=== PATIENT | male | born 1980 | race Caucasian/White ===

== ENCOUNTER 2023-02-28 16:47 | Emergency (ER) | payer OTHER, BC ==
[2023-02-28 17:02] LABS: BASOPHILS ABSOLUTE AUTO 0.05 K/uL (0.00-0.20); BASOPHILS PERCENT AUTO 0.5 % (0.0-2.0); HEMATOCRIT 47.6 % (39.0-49.0); HEMOGLOBIN 16.7 g/dL (13.1-16.8); LYMPHOCYTES ABSOLUTE AUTO 2.19 K/uL (0.50-3.50); LYMPHOCYTES PERCENT AUTO 22.2 % (10.0-50.0); MEAN CORPUSCULAR HEMOGLOBIN 31.1 pg (28.2-33.3); MEAN CORPUSCULAR HGB CONC 35.1 g/dL (31.7-36.0); MEAN CORPUSCULAR VOLUME 88.6 fL (84.0-98.0); MONOCYTES ABSOLUTE AUTO 1.03 K/uL (0.00-1.00); MONOCYTES PERCENT AUTO 10.5 % (2.0-14.0); NEUTROPHILS ABSOLUTE AUTO 6.38 K/uL (1.40-7.00); NEUTROPHILS PERCENT AUTO 64.8 % (45.0-80.0); PLATELET COUNT,PLT 279 K/uL (150-350); RED BLOOD CELL COUNT 5.37 M/uL (4.33-5.41); WHITE BLOOD CELL COUNT,WBC 9.9 K/uL (4.0-10.2)
[2023-02-28 17:13] LABS: ALANINE AMINOTRANSFERASE,ALT 51 U/L (12-78); ALBUMIN 3.8 g/dL (3.4-5.0); ALKALINE PHOSPHATASE 73 IU/L (46-116); ANION GAP 7.2 meq/L (7-15); ASPARTATE AMNIOTRANSFERASE,AST 24 U/L (15-37); BILIRUBIN TOTAL 0.9 mg/dL (0.2-1.0); BLOOD UREA NITROGEN,BUN 14 mg/dL (7-18); CALCIUM 8.8 mg/dL (8.5-10.1); CARBON DIOXIDE,CO2 29.8 mmol/L (21.0-32.0); CHLORIDE,CL 105 mmol/L (98-107); CREATININE 1.64 mg/dL (0.51-1.17); ESTIMATED GFR 53 mL/min (>=60); ETHANOL BLOOD MEDICAL 0.005 g/dL (0.000-0.080); GLUCOSE RANDOM 108 mg/dL (70-99); PROTEIN TOTAL,TP 7.3 g/dL (6.4-8.2); SODIUM,NA 142 mmol/L (136-145)
[2023-02-28] MEDS ORDERED: Sodium Chloride 0.9% 1,000 ML IV ONE (17:45)
[2023-02-28] MEDS ORDERED: Bacitracin Oint 1 GM U/D Packet TOP ONE (18:08)
== END 2023-02-28 19:45 | disposition home or self-care (01) ==
LOC: LL.ED 16:47
DX: S99.911A Unspecified injury of right ankle, initial encounter (principal); S00.81XA Abrasion of other part of head, initial encounter; V89.2XXA Person injured in unspecified motor-vehicle accident, traffic, initial encounter
CPT/HCPCS: 36415; 71045; 72020; 72170; 73590-RT; 73610-RT; 80053; 80307; 83605; 85025; 93005; 96360; 99284-25; J7030